=== PATIENT | male | born 1970 | race Caucasian/White ===

== ENCOUNTER 2019-08-12 07:00 | Day surgery (SDC) | payer OTHER ==
[~2019-08-12] VITALS: Ht 172.7 cm; Wt 146.9 kg
[~2019-08-12 07:00] MED LIST: COLC1TAB13 PO; CORE12.5 PO; FOLI1TAB11 PO; LASI80TA3 PO; LIDOCAINE 1% MDV 20ML VIAL SQ PRN; LR 1,000 ML IV ONE; NEUR300C PO; VENL37TA PO; XARE10TA PO; ZYLO300T6 PO; vitamin b1 PO
[2019-08-12] MEDS ORDERED: LIDOCAINE 2% INJ 100 MG/5 ML SDV (FOR ANES.) As Ordered ONE (07:57)
[2019-08-12] MEDS ORDERED: KETOROLAC 60 MG/2 ML VIAL (J1885) As Ordered ONE (07:58)
[2019-08-12] MEDS ORDERED: ONDANSETRON 4MG/2ML VIAL (J2405) As Ordered ONE (07:58)
[2019-08-12] MEDS ORDERED: propofoL 200 MG/20 ML VIAL As Ordered ONE (07:58)
[2019-08-12] MEDS ORDERED: dexameTHASONE 4 MG/ML 1ML VIAL (J1100) As Ordered ONE (07:58)
[2019-08-12] MEDS ORDERED: MIDAZOLAM INJ 2 MG/2 ML VIAL (J2250) As Ordered ONE (08:54)
[2019-08-12] MEDS ORDERED: fentaNYL 100 MCG/2 ML INJECTION (J3010) As Ordered ONE (08:54)
[2019-08-12] MEDS ORDERED: BUPIVACAINE/EPIN 0.25% 30 ML VIAL As Ordered ONE (09:15)
[2019-08-12] MEDS ORDERED: ACETAMINOPHEN 1000MG 100ML IV BTL (OFIRMEV) (J0131 PER 10MG) As Ordered ONE (09:24)
[2019-08-12] MEDS ORDERED: LR 1,000 ML IV SCH (11:00)
[2019-08-12] MEDS ORDERED: oxyCODONE 5MG TAB PO PRN ×2 (11:00)
[2019-08-12 12:42] VITALS: BP 136/82
--- NOTE | 2019-08-13 11:40 | RO ---
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 POSTOPERATIVE DIAGNOSES: Left carpal and cubital tunnel syndrome along with chronic scapholunate tear without arthritic development along with two wrist masses. Extensor tendon to the middle finger chronic tear. PROCEDURE: Left open carpal tunnel release, open cubital tunnel release, extensor tendon tenolysis to six tendons, four extensor digitorum communis (EDC), one extensor indicis proprius (EIP), and one extensor pollicis longus (EPL), along with tenosynovectomy into two compartments, the fourth compartment and third compartment, along with wrist mass excision over the dorsum of the hand and the distal forearm along with posterior interosseous nerve (PIN) neurectomy and extensor tendon repair to the EDC middle finger. SURGEON: Kevin Benjamin MD UNISHEAR OPERATOR: Anneliese Meza, who was essential for retraction during sims portions of the procedure. ANESTHESIA: General. INDICATION: This is a 48-year-old male that failed nonoperative modes of treatment. We discussed the risks and benefits of surgical release and decompression and intervention including, but not limited to, infection, damage to surrounding structures, incomplete relief, and patient wished to proceed. PREOPERATIVE ANTIBIOTICS: None. BLOOD LOSS: Minimal. TOURNIQUET TIME: 1 hour. OPERATIVE DESCRIPTION: Patient was brought back to the operating room (OR) in the supine position. He underwent general anesthesia, at which point the left arm was prepped and draped in the usual fashion. Once we had a time-out confirming site, side, and surgery, we injected 30 mL of 0.25% Marcaine overlying the incisions. We then elevated the tourniquet up to 250 mmHg via the Esmarch. We then made a longitudinal incision along the Shafer's line and the fourth ray in the palm, sharply dissected deep, exposing the transverse carpal ligament. Once this was adequately released, along with the distal extent of the antebrachial fascia, we irrigated the wound thoroughly and closed with #2-0 nylon. We then turned our attention to the dorsum of the wrist and made a longitudinal incision in line with the third ray, sharply dissected the subcutaneous tissue, carefully controlled superficial bleeding, and careful to monitor for super sensory branches of nerves. Once we exposed the extensor tendons and the retinaculum, we were able to identify two separate masses along the distal dorsum of the hand that appeared to be leaking fluid reaching distally along with one proximally overlying the tendons. At this point, we released the EPL from its compartment and did a tenosynovectomy and then we elevated the fourth compartment and released it, exposing significant tenosynovium along with chronic tearing of all five tendons involved; however, the middle finger had a large interstitial tear. All five tendons were debrided, but the middle finger tendon required a tubulization using #3-0 Prolene probe. Once this was adequately debrided, the tendons, we then isolated the distal mass and removed it, it from the wrist capsule. This was sent to pathology. We then identified a similar mass proximally off of the musculotendinous junction and sent this to pathology as well. At this point, we irrigated the wounds thoroughly. We were happy with our decompression. We then identified the posterior osseous nerve and did a neurectomy proximal towards the musculotendinous junction at the base of the fourth compartment. We then closed the fourth compartment with #2-0 Ethibond to prevent bowstring. We then left the EPL in the subcutaneous tissue and closed with #3-0 Vicryl and #2-0 nylon for skin. We turned our attention to the elbow and made a longitudinal incision between the medial epicondyle and the olecranon and then sharply dissected subcutaneous tissue, careful to monitor for the medial antebrachial cutaneous nerve. We then identified the ulnar nerve at the proximal extent of the incision into the medial head of the triceps and released it proximally off the intermuscular septum, followed it distally through Bates ligament and then removed through the deep and superficial fascia of the flexor carpi ulnaris (FCU). (agree) Once we had adequate release, we then that it adequate release within the elbow, the nerve did not sublux. We then irrigated the wound thoroughly and closed with #3-0 Vicryl and #2-0 nylon. We placed the patient in a wrist splint with dorsiflexion to take tension off of our extensor retinaculum repair and placed dressings of adaptive gauze and sterile Webril. The tourniquet was let down at approximately 1 hour. Patient was awakened and taken to the postanesthesia care unit (PACU) in stable condition. POSTOPERATIVE PLAN: Patient will use a splint for 2 weeks to protect our extensor retinaculum repair; however, after a 2-week visit, will place him into a brace and have him start working on physical therapy and range of motion. As this was a tubulization procedure, there is more need to protect the extensor tendon repair as there is longitudinal continuity. He will also work on pain control and finger range of motion.
== END 2019-08-12 13:09 | disposition home or self-care (01) ==
LOC: M SDC 07:00
PROVIDERS: ATTEND Orthopaedic Surgery Hand Surgery
DX: G56.02 Carpal tunnel syndrome, left upper limb (principal); G56.22 Lesion of ulnar nerve, left upper limb; M25.839 Other specified joint disorders, unspecified wrist; M66.242 Spontaneous rupture of extensor tendons, left hand; M67.432 Ganglion, left wrist; I48.91 Unspecified atrial fibrillation; Z95.0 Presence of cardiac pacemaker; G47.30 Sleep apnea, unspecified; M10.9 Gout, unspecified; F41.9 Anxiety disorder, unspecified; Z79.899 Other long term (current) drug therapy; Z79.01 Long term (current) use of anticoagulants; F17.220 Nicotine dependence, chewing tobacco, uncomplicated; Z88.0 Allergy status to penicillin; Z88.8 Allergy status to other drugs, medicaments and biological substances; Z91.013 Allergy to seafood; Z91.040 Latex allergy status
CPT/HCPCS: 25110; 25111; 25118; 26418; 26445; 64718; 64721; 64772; 88304; J0131; J1885; J2250; J2405; J3010